=== PATIENT | female | born 1980 | race Hispanic/Latino ===

== ENCOUNTER 2017-06-13 13:56 | Emergency (ER) | payer OTHER ==
[~2017-06-13] VITALS: Ht 157.5 cm; Wt 59.0 kg
--- NOTE | 2017-06-13 14:27 | ED GI/GU/ABDOMINAL COMPLAINT ---
History of Present Illness General Chief Complaint: General Adult Stated Complaint: PT IS NOT ABLE TO HOLD ANYTHING DOWN Source: patient, old records, friend Exam Limitations: no limitations Vital Signs & Intake/Output Vital Signs & Intake/Output ED Intake and Output 06/14 0000 06/13 1200 Intake Total 100 Output Total Balance 100 Intake, IV 100 Patient 130 lb Weight Weight Reported by Patient Measurement Method Allergies Coded Allergies: naproxen (Intermediate, HIVES 06/13/17) tramadol (Intermediate, HIVES 06/13/17) Reconcile Medications Oxycodone HCl/Acetaminophen (Percocet 5-325 MG Tablet) 5 MG-325 MG TABLET 1 TAB PO BID PRN pain Potassium Chloride (Klor-Con 10) 10 MEQ TABLET.ER 1 TAB PO DAILY hypokalemia Promethazine HCl 12.5 MG TABLET 1 TAB PO Q6-8 PRN nausea Triage Note: PT TO TRIAGE WITH HER FRIEND, PT STATES THAT SHE STARTED WITH MID EPIGASTRIC PAIN THAT RADIATES INTO HER R SIDE YESTERDAY AT 11 AM, N/V, PT WAS SEEN AT [facility] AND HAD CT SCAN, THEY TOLD HER SHE HAS COLITIS AND DISCHARGED HER. PT HAS BEEN UNABLE TO KEEP ANYTHING DOWN AND PAIN IS INCREASING. PT VOMITTING BILE AT TRIAGE. Triage Nurses Notes Reviewed? yes ? n Is pt currently ? No Onset: Abrupt Duration: day(s): (2), constant Timing: recent history Quality/Severity: aching, cramping Severity Numbers: 6 Location: generalized abdomen Radiation: no radiation Activities at Onset: none Prior Abdominal Problems: none Modifying Factors: Worsens With: eating. Associated Symptoms: nausea/vomiting HPI: 36-year-old female with no medical history presents the ER for evaluation with family and friends complaining of diffuse abdominal pain nausea and vomiting since yesterday morning. She was seen at [facility] yesterday for the same at which time she she was told by CAT scan she has colitis and was sent home with antibiotics. She denies diarrhea however is been taking Zofran without improvement of her nausea and vomiting. She's been unable tolerate by mouth liquids. Her only abdominal surgery is significant for a tubal ligation. No coughing no fever no chills no chest pain shortness of breath or urinary symptoms no urinary urgency frequency no vaginal bleeding or discharge. no hemetemsis. no black or bloody stools. (Kalpesh Brown) Past History Travel History Traveled to [place] past 21 day No Medical History Any Pertinent Medical History? see below for history Neurological: NONE EENT: NONE Cardiovascular: NONE Respiratory: NONE Gastrointestinal: NONE Hepatic: NONE Renal: NONE Musculoskeletal: NONE Psychiatric: NONE Endocrine: NONE Blood Disorders: NONE Cancer(s): NONE CHILD WELFARE ASSISTANT/Reproductive: NONE Surgical History Surgical History: non-contributory Psychosocial History What is your primary language Samoan Tobacco Use: Never used ETOH Use: denies use Illicit Drug Use: denies illicit drug use Family History Hx Contributory? No (Kalpesh Brown) Review of Systems Review of Systems Constitutional: Reports: see HPI. Comments Review of systems: See HPI, All other systems negative. Constitutional, no chills no fever, no malaise HEENT: no sore throat no congestion, no ear pain Cardiovascular: No chest pain , no palpitation Skin: no rashes, no change in skin Respiratory: No dyspnea no cough no sputum GI: see hpi : No dysuria No hematuria, no frequency Muscle skeletal: No joint pain, no back pain, no neck pain Neurologic: , no headache Heme/endocrine: No bruising Immunology: No lymphadenopathy (Kalpesh Brown) Physical Exam Physical Exam General Appearance: well developed/nourished, alert, awake Gastrointestinal: soft, non-tender Comments: Well-developed well-nourished person in no acute distress HEENT: Normal EENT exam; PERRL, EOMI, HEAD is atraumatic. moist mucous membranes. Neck: Supple,normal range of motion Back: Nontender, no CVA tenderness. Full range of motion Cardiovascular: Regular rate and rhythms no murmur Respiratory: No respiratory distress. Patient speaking in full complete sentences. Breath sounds clear to auscultation bilaterally: NO W/R/R Abdomen: Soft, nontender nondistended, no appreciable organomegaly. Normal bowel sounds. No rebound/guarding, Extremity: No edema, full range of motion of extremities Neuro: Alert oriented x3, motor sensory normal, There were no obvious focal neurologic abnormalities. Skin: No appreciable rash on exposed skin, skin is warm and dry. No jaundice Psych: Mood and affect is normal, memory and judgment is normal. Core Measures ACS in differential dx? No Sepsis Present: No Sepsis Focused Exam Completed? No (Kalpesh Brown) Progress Differential Diagnosis: appendicitis, biliary colic, bowel obstruction, colon cancer, cholecystitis, diverticulitis, ectopic , hepatitis, hernia, inflamm bowel dis, intrauterine , kidney stone, ovarian cyst, pancreatitis, PID/cervicitis, PUD/GERD, perforated viscous, SBO, UTI/pyelo Plan of Care: Orders Procedure Date/time Status URINE 06/14 1439 Complete URINALYSIS 06/14 1439 Complete MAGNESIUM 06/14 1439 Complete LACTIC ACID 06/14 1439 Complete COMPREHENSIVE METABOLIC PANEL 06/14 1439 Complete CBC WITHOUT DIFFERENTIAL 06/14 1439 Complete Laboratory Tests 06/13/17 1740: Lactic Acid Cancelled 06/13/17 1539: Anion Gap 11, Estimated GFR > 60, BUN/Creatinine Ratio 24.0, Glucose 98, Lactic Acid 0.7, Calcium 9.0, Magnesium 1.8, Total Bilirubin 0.8, AST 17, ALT 26, Alkaline Phosphatase 54, Total Protein 6.7, Albumin 3.9, Globulin 2.8, Albumin/ Globulin Ratio 1.4, CBC w Diff NO MAN DIFF REQ, RBC 4.34, MCV 76.4 L, MCH 24.9 L, MCHC 32.5 L, RDW 15.4 H, MPV 8.6, Gran % 78.4 H, Lymphocytes % 13.5 L, Monocytes % 7.9, Eosinophils % 0, Basophils % 0.2, Absolute Granulocytes 6.6 H, Absolute Lymphocytes 1.1 L, Absolute Monocytes 0.7 H, Absolute Eosinophils 0, Absolute Basophils 0 06/13/17 1536: Urinalysis LIGHT H, Urine Color YEL, Urine Clarity HAZY H, Urine pH 6.0, Ur Specific [place] >= 1.030, Urine Protein 100 H, Urine Ketones >=80, Urine Nitrite NEG, Urine Bilirubin NEG@ICTO, Urine Urobilinogen 1.0, Ur Leukocyte Esterase NEG, Ur Microscopic SEDIMENT EXAMINED, Urine RBC 1-3, Urine WBC 1-3 H, Ur Epithelial Cells MANY H, Urine Bacteria MANY H, Urine Mucus MANY H, Urine Hemoglobin TRACE-LYSED, Urine Glucose NEG, Urine Test NEGATIVE Labs ordered old records 3 CAT scan ordered. Case discussed with Dr. Whitley agrees with plan 1600 patient resting in no apparent distress she's had no further episodes of vomiting after being medicated with Phenergan reports pain has improved pending CAT scan and discussed with length all of her labs today. 1700 and discussed with the patient and her family her CAT scan results. She reports her nausea is returning Phenergan IV ordered potassium IV ordered case discussed with Dr. Whitley. The patient's family has a history significant for liver cancer I discussed apparently her CAT scan findings today her primary care physician is out of [place] and I discussed with them need for close follow up and further monitoring including recommended MRI. Patient is otherwise nontoxic appearing at this time 1810- patient tolerating by mouth challenge with simin honorio with no episodes of nausea and dry heaving or vomiting. I discussed with her at once again a family plan of care she will go home with a prescription for potassium supplements Phenergan and Percocet. She was instructed to follow-up with her primary care physician regarding incidental findings on CAT scan today regarding a liver lesionS. . She will also be sent home with a water form for repeat potassium level which she was instructed to have done in 3 days. Return precautions were discussed at [place] she feels comfortable with plan Diagnostic Imaging: Viewed by Me: CT Scan. Discussed w/RAD: CT Scan. Initial ED EKG: none (Kalpesh Brown) Departure Departure Disposition: HOME OR SELF CARE Condition: Stable Clinical Impression Primary Impression: Nausea & vomiting Secondary Impressions: Hypokalemia, Liver lesion Referrals: Mily Chow APRN (PCP/Family) Additional Instructions: Phenergan for nausea. Percocet for pain. Potassium supplements as directed. Follow-up with your primary care physician this week as discussed regarding the incidental finding today on the CAT scan regarding your liver as you will most likely require further workup and imaging including possibly an MRI. Follow up as well for repeat potassium check. Return at anytime sooner with any concerns or worsening of your symptoms. Departure Forms: Customer Survey General Discharge Information Prescriptions: Current Visit Scripts Potassium Chloride (Klor-Con 10) 1 TAB PO DAILY #14 TAB Oxycodone HCl/Acetaminophen (Percocet 5-325 MG Tablet) 1 TAB PO BID PRN pain #10 TAB Promethazine HCl 1 TAB PO Q6-8 PRN nausea #14 TAB (Kalpesh Brown) PA/DINING SERVICE SUPERVISOR Co-Sign Statement Statement: ED Attending supervision documentation- [] I saw and evaluated the patient. I have also reviewed all the pertinent lab results and diagnostic results. I agree with the findings and the plan of care as documented in the PA's/DINING SERVICE SUPERVISOR's documentation. [X] I have reviewed the ED Record and agree with the PA's/DINING SERVICE SUPERVISOR's documentation. [] Additions or exceptions (if any) to the PAs/DINING SERVICE SUPERVISOR's note and plan are summarized below: [] (Gutierrez CRUZ,Zaynab)
[2017-06-13 15:58] VITALS: BP 149/79
[2017-06-13 15:59] LABS: ABSOLUTE BASOPHIL COUNT 0 /CUMM (0.0-0.2); ABSOLUTE EOSINOPHIL COUNT 0 /CUMM (0.0-0.7); ABSOLUTE GRANULOCYTE CT 6.6 /CUMM (1.4-6.5); ABSOLUTE LYMPH COUNT 1.1 /CUMM (1.2-3.4); ABSOLUTE MONOCYTE COUNT 0.7 /CUMM (0.10-0.60); BASOPHIL % 0.2 % (0.0-2.0); EOSINOPHIL % 0 % (0-5); GRANULOCYTE % 78.4 % (42.2-75.2); HEMATOCRIT 33.1 % (37-47); MEAN CORPUSCULAR HGB 24.9 PG (27.0-31.0); MEAN CORPUSCULAR HGB CONC 32.5 G/DL (33.0-37.0); MEAN CORPUSCULAR VOLUME 76.4 FL (81.0-99.0); MEAN PLATELET VOLUME 8.6 FL (7.4-10.4); PLATELET COUNT 219 /CUMM (130-400); RBC DISTRIBUTION WIDTH 15.4 % (11.5-14.5); RED BLOOD CELL CT 4.34 /CUMM (4.20-5.40); WHITE BLOOD CELL COUNT 8.5 /CUMM (4.8-10.8)
--- NOTE | 2017-06-13 16:44 | CT SCAN REPORT ---
EXAMINATION: CT ABDOMEN AND PELVIS WITH CONTRAST CLINICAL INFORMATION: Diffuse abdominal pain. Nausea and vomiting. COMPARISON: None TECHNIQUE: Multidetector volumetric imaging was performed of the abdomen and pelvis following IV administration of 95 mL of Optiray 320 intravenous contrast. Sagittal and coronal reformatted images were obtained on the technologist's workstation. DLP: 242.98 mGy-cm FINDINGS: LUNG BASES: The visualized lung bases are unremarkable. LIVER, GALLBLADDER, AND BILIARY TREE: There are 2 lesions in the right posterior lobe of liver. There is a strongly enhancing lesion with a hypodense central nidus that is somewhat ill-defined margins but defined rim. This measures 2.5 cm. Axial image 135 (3). The second lesion posterior medial right lobe of liver in subcapsular location measuring 3 x 2.5 x 2.6 cm is a hypodense lesion. This has sharply marginated borders. This has density measurement of 64 Hounsfield units and is not a hepatic cyst. Both of these liver lesions can be further characterized with dynamic MRI study. No intrahepatic bile duct dilatation. The gallbladder is unremarkable with no evidence of radiopaque gallstones, gallbladder wall thickening, or obvious pericholecystic inflammatory changes. PANCREAS: Unremarkable. SPLEEN: Unremarkable. ADRENAL GLANDS: Unremarkable. KIDNEYS AND URETERS: The kidneys are normal in size, shape, and attenuation. No hydronephrosis, hydroureter, or calculi seen. No perinephric stranding. BLADDER: Unremarkable. GASTROINTESTINAL TRACT: The small and large bowel are unremarkable. The appendix is not identified. There is no inflammation the mesentery. ABDOMINAL WALL: No significant hernia is appreciated. LYMPH NODES: Normal. VASCULAR: Unremarkable. PELVIC VISCERA: The uterus is retroverted. There is no adnexal abnormality. OSSEOUS STRUCTURES: No acute abnormality. There are small calcifications in the nucleus pulposus of the L3-L4 vertebrae. There is small subcortical cysts in the central inferior endplate of L2 and L3 vertebrae. IMPRESSION: 1. No acute abnormality CT scan abdomen pelvis. 2. 2 nonspecific lesions in the right lobe of liver. These can be further characterized with nonemergent dynamic MRI imaging.
[2017-06-13] MEDS ORDERED: PROMETHAZINE12.5 M2 PO (17:30)
[2017-06-13] MEDS ORDERED: PERCOCET 5-3251 EACH PO (17:30)
[2017-06-13] MEDS ORDERED: KLOR-CON 1010 ME1 PO (17:30)
== END 2017-06-13 19:27 ==
LOC: ERH 13:56
PROVIDERS: Physician Assistant Medical
DX: R11.2 Nausea with vomiting, unspecified (principal); E87.6 Hypokalemia; K76.9 Liver disease, unspecified
CPT/HCPCS: 74177; 81001; 81025; 96365; 96375; 96376; J2550; J7040

== ENCOUNTER 2017-07-10 15:33 | Emergency (ER) | payer OTHER ==
[~2017-07-10] VITALS: Ht 157.5 cm; Wt 59.0 kg
[~2017-07-10 15:33] MED LIST: KLOR-CON 1010 ME1 PO; PERCOCET 5-3251 EACH PO; PROMETHAZINE12.5 M2 PO
[2017-07-10 18:32] LABS: ABSOLUTE BASOPHIL COUNT 0 /CUMM (0.0-0.2); ABSOLUTE EOSINOPHIL COUNT 0 /CUMM (0.0-0.7); ABSOLUTE GRANULOCYTE CT 7.8 /CUMM (1.4-6.5); ABSOLUTE MONOCYTE COUNT 0.2 /CUMM (0.10-0.60); BASOPHIL % 0.3 % (0.0-2.0); EOSINOPHIL % 0 % (0-5); HEMATOCRIT 36.9 % (37-47); MEAN CORPUSCULAR HGB 24.8 PG (27.0-31.0); MEAN CORPUSCULAR VOLUME 77.4 FL (81.0-99.0); MEAN PLATELET VOLUME 8.7 FL (7.4-10.4); PLATELET COUNT 270 /CUMM (130-400); RBC DISTRIBUTION WIDTH 15.8 % (11.5-14.5); RED BLOOD CELL CT 4.77 /CUMM (4.20-5.40); WHITE BLOOD CELL COUNT 9.1 /CUMM (4.8-10.8)
[2017-07-10 18:50] LABS: GRANULOCYTE % 85.7 % (42.2-75.2)
--- NOTE | 2017-07-10 20:48 | ED GI/GU/ABDOMINAL COMPLAINT ---
History of Present Illness General Chief Complaint: Abdominal Pain/Flank Pain Stated Complaint: SHIVER, NVD, FEVER,ABDOMINAL PAIN Source: patient Exam Limitations: no limitations Vital Signs & Intake/Output Vital Signs & Intake/Output Vital Signs Date Time Temp Pulse Resp B/P B/P Pulse O2 O2 Flow FiO2 Mean Ox Delivery Rate 07/10 2054 99.5 100 18 137/80 98 Room Air 07/10 1540 98.0 112 16 132/92 98 Room Air Allergies Coded Allergies: naproxen (Intermediate, HIVES 06/13/17) tramadol (Intermediate, HIVES 06/13/17) Reconcile Medications LORazepam (Ativan) 1 MG TAB 1 TAB PO TID PRN NAUSEA Metoclopramide HCl (Reglan) 10 MG TABLET 1 TAB PO 4 TIMES/DAY PRN NAUSEA 30 minutes before meals and bedtime Ondansetron (Zofran Odt) 4 MG TAB.RAPDIS 1 TAB SL TID PRN NAUSEA Oxycodone HCl/Acetaminophen (Percocet 5-325 MG Tablet) 5 MG-325 MG TABLET 1 TAB PO BID PRN pain Potassium Chloride (Klor-Con 10) 10 MEQ TABLET.ER 1 TAB PO DAILY hypokalemia Promethazine HCl 12.5 MG TABLET 1 TAB PO Q6-8 PRN nausea Triage Note: PT TO TRIAGE VOMITING YELLOW BILE THAT SHE STATES HAS BEEN GOING ON SINCE THIS AM. PT STATES SHE WAS HERE THE BEGINING OF JUNE WITH THE SAME THING. PT STATES THERE WAS NOTHING WRONG WITH HER THEN JUST "A BUG". Triage Nurses Notes Reviewed? yes LMP (ages 10-50): unknown ? N Is pt currently ? No Onset: Abrupt Duration: day(s): (2), changing over time, continues in ED, getting worse Timing: single episode today Quality/Severity: cramping Severity Numbers: 7 Location: generalized abdomen Radiation: no radiation Prior Abdominal Problems: similar symptoms Past Sexual History: Unobtainable at this time No Modifying Factors: none Modifying Factors: Worsens With: vomiting. Associated Symptoms: nausea/vomiting HPI: 36-year-old female with no known past medical history positive for evaluation of nausea vomiting and abdominal pain. Patient states symptoms started about 2 days ago and have been intermittently worse. She reports multiple episodes of vomiting yellow material today. She's been unable to eat or drink much. She's not taking any medicine for this. She had a similar episode about one month ago and is evaluated here. She never followed up. She denies any chest pain shortness of breath diarrhea hematemesis or fever. No recent travel no sick contacts. She denies any alcohol use. (Alexander Hernandez) Past History Travel History Traveled to [place] past 21 day No Medical History Any Pertinent Medical History? see below for history Neurological: NONE EENT: NONE Cardiovascular: NONE Respiratory: NONE Gastrointestinal: NONE Hepatic: NONE Renal: NONE Musculoskeletal: NONE Psychiatric: NONE Endocrine: NONE Blood Disorders: NONE Cancer(s): NONE PHOTOGRAPHIC ARTIST/Reproductive: NONE Surgical History Surgical History: non-contributory Psychosocial History What is your primary language Dutch Tobacco Use: Never used ETOH Use: denies use Illicit Drug Use: denies illicit drug use Family History Hx Contributory? No (Alexander Hernandez) Review of Systems Review of Systems Constitutional: Reports: no symptoms. EENTM: Reports: no symptoms. Respiratory: Reports: no symptoms. Cardiovascular: Reports: no symptoms. GI: Reports: see HPI, abdominal pain, nausea, vomiting. Genitourinary: Reports: no symptoms. Musculoskeletal: Reports: no symptoms. Skin: Reports: no symptoms. Neurological/Psychological: Reports: no symptoms. Hematologic/Endocrine: Reports: no symptoms. Immunologic/Allergic: Reports: no symptoms. All Other Systems: Reviewed and Negative (Alexander Hernandez) Physical Exam Physical Exam General Appearance: well developed/nourished, no apparent distress, alert, awake Head: atraumatic, normal appearance Eyes: Bilateral: normal appearance, PERRL, EOMI. Ears, Nose, Throat, Mouth: hearing grossly normal, moist mucous membrane Neck: normal inspection, supple, full range of motion Respiratory: normal breath sounds, chest non-tender, no respiratory distress, lungs clear Cardiovascular: regular rate/rhythm, normal peripheral pulses Peripheral Pulses: 2+ radial (R), 2+ radial (L) Gastrointestinal: soft, no organomegaly, tenderness (DIFFUSE) Back: normal inspection, normal range of motion, no vertebral tenderness Extremities: normal range of motion Neurologic/Psych: no motor/sensory deficits, awake, alert, oriented x 3, normal gait Skin: intact, normal color, warm/dry Core Measures ACS in differential dx? No Sepsis Present: No Sepsis Focused Exam Completed? No (Alexander Hernandez) Progress Differential Diagnosis: appendicitis, biliary colic, bowel obstruction, cholecystitis, diverticulitis, gastritis, kidney stone, pancreatitis, peptic ulcer, PUD/GERD, UTI/pyelo Plan of Care: Orders Procedure Date/time Status URINALYSIS 07/10 1808 Complete LIPASE 07/10 1808 Complete HUMAN BETA HCG SCREEN 07/10 1808 Complete COMPREHENSIVE METABOLIC PANEL 07/10 1808 Complete CBC WITHOUT DIFFERENTIAL 07/10 1808 Complete Laboratory Tests 07/10/17 1940: Urine Color YEL, Urine Clarity CLEAR, Urine pH 7.5, Ur Specific [place] 1.020, Urine Protein 30 H, Urine Ketones 40 H, Urine Nitrite NEG, Urine Bilirubin NEG , Urine Urobilinogen 1.0, Ur Leukocyte Esterase NEG, Ur Microscopic SEDIMENT EXAMINED, Urine RBC 1-3, Urine WBC 1-3 H, Ur Epithelial Cells FEW, Urine Bacteria FEW H, Urine Mucus MANY H, Urine Hemoglobin NEG, Urine Glucose NEG 07/10/171818: Anion Gap 13, Estimated GFR > 60, BUN/Creatinine Ratio 20.0, Glucose 126 H, Calcium 10.0, Total Bilirubin 1.2, AST 31, ALT 36, Alkaline Phosphatase 74, Total Protein 7.8, Albumin 4.4, Globulin 3.4, Albumin/Globulin Ratio 1.3, Lipase 67, Total Beta HCG NEGATIVE, CBC w Diff NO MAN DIFF REQ, RBC 4.77, MCV 77.4 L, MCH 24.8 L, MCHC 32.0 L, RDW 15.8 H, MPV 8.7, Gran % 85.7 H, Lymphocytes % 11.3 L, Monocytes % 2.7, Eosinophils % 0, Basophils % 0.3, Absolute Granulocytes 7.8 H, Absolute Lymphocytes 1.0 L, Absolute Monocytes 0.2, Absolute Eosinophils 0, Absolute Basophils 0 Patient seen and evaluated. She is reporting multiple episodes of vomiting today. She is actively vomiting here in the ER. We'll check basic labs and a CT scan. Patient was given fluids and IV Zofran. She continued to vomit despite Zofran. She was given a dose of Phenergan. Patient also required doses of Reglan. CT scan does not show any acute findings. Liver lesions are redemonstrated patient was told about these on her last ER visit and never followed up. Bloodwork is within normal limits potassium is 3.4. Patient is still vomiting she was given a dose of IV Ativan. Patient eventually began to feel better after receiving multiple medications and Ativan. She was given crackers and water by mouth and was able to tolerated. She reports feeling better and is requesting to go home. Patient will be discharged home with a prescription for Ativan Zofran and Reglan. Patient has oral potassium at home and advised her to continue taking this. Advised to follow-up with a GI doctor as soon as possible for further evaluation of the liver lesions. Brat diet. Discussed return precautions in detail. Patient agrees the plan. Diagnostic Imaging: Viewed by Me: CT Scan. Discussed w/RAD: CT Scan. Radiology Impression: PATIENT: LINDY GUERRIER PRESENT AGE: 36 PATIENT ACCOUNT NO: [id number] : 79 LOCATION: [facility] ORDERING PHYSICIAN: Alexander [place] SERVICE DATE: 07/10/17 EXAM TYPE: CAT - CT ABD & PELVIS W IV CONTRAST EXAMINATION: CT ABDOMEN AND PELVIS WITH CONTRAST CLINICAL INFORMATION: Diffuse abdominal pain. Nausea, vomiting. COMPARISON: 10/2017. TECHNIQUE: Contiguous axial thin section helical images of the abdomen and pelvis were performed following the administration of 95 mL of intravenous Optiray 320. The data set was reformatted in the coronal and sagittal planes and reviewed on an independent workstation. DLP: 240 mGy-cm. FINDINGS: The visualized lung bases are clear. The visualized portions of the heart are unremarkable. The liver is of normal size and attenuation without intrahepatic biliary ductal dilation. Within the inferior right lobe of the liver, there is an area of increased attenuation measuring approximately 2.8 cm. This is nonspecific, but could represent enhancement. A normal gallbladder is identified. There is no wall thickening or discernible pericholecystic fluid. The spleen, pancreas and left adrenal glands are unremarkable. There is a low- attenuation lesion within the right adrenal gland measuring 2.8 cm. Both kidneys are of normal size and attenuation without hydronephrosis or nephrolithiasis. Following the administration of IV contrast, prompt symmetric nephrograms are displayed. There is no abdominal free fluid. There is neither mesenteric nor retroperitoneal lymphadenopathy. Normal unopacified loops of small and large bowel are identified. There is no pelvic free fluid. The urinary bladder is unremarkable. There is neither pelvic nor inguinal lymphadenopathy. Bone windows : Neither sclerotic nor lytic bone lesions are identified. IMPRESSION: No evidence for acute abdominal or pelvic inflammatory or infectious processes. 2.8 cm enhancing lesion within the right lobe of the liver. This is nonspecific, but could correspond to an hemangioma and unchanged from prior exam. Consider correlation with abdominal MRI for further tissue characterization. 2.8 cm right adrenal mass. Noncontrast Hounsfield unit measurements cannot be obtained on this postcontrast study. This is likely business process representative of an adrenal adenoma, though consider correlation with abdominal MRI for further tissue characterization. DICTATED BY: Sorin Saenz MD DATE/TIME DICTATED:07/10/172038 HOME HEALTH CARE COORDINATOR:JORDANA DATE/TIME TRANSCRIBED:07/10/172038 CONFIDENTIAL, DO NOT COPY WITHOUT APPROPRIATE AUTHORIZATION. Initial ED EKG: none (Alexander Hernandez) Departure Departure Disposition: HOME OR SELF CARE Condition: Stable Clinical Impression Primary Impression: Nausea & vomiting Qualifiers: Vomiting type: unspecified Vomiting Intractability: non-intractable Qualified Code: R11.2 - Nausea with vomiting, unspecified Referrals: Mily Chow APRN (PCP/Family) Jennifer CRUZ,Earl Humphreys Additional Instructions: Rest and drink plenty of fluids. Eat bland foods like bananas rice applesauce and toast. Make a follow-up with her primary care doctor and provided GI doctor as soon as possible. Zofran and Reglan and ativan can be used as needed nausea and abdominal pain. Monitor symptoms closely return with any concerns. Departure Forms: Customer Survey General Discharge Information Prescriptions: Current Visit Scripts Metoclopramide HCl (Reglan) 1 TAB PO 4 TIMES/DAY PRN NAUSEA #30 TAB 30 minutes before meals and bedtime Ondansetron (Zofran Odt) 1 TAB SL TID PRN NAUSEA #15 TAB LORazepam (Ativan) 1 TAB PO TID PRN NAUSEA #10 TAB (Alexander Hernandez) PA/RETAIL STORE CLERK Co-Sign Statement Statement: ED Attending supervision documentation- [] I saw and evaluated the patient. I have also reviewed all the pertinent lab results and diagnostic results. I agree with the findings and the plan of care as documented in the PA's/RETAIL STORE CLERK's documentation. [x] I have reviewed the ED Record and agree with the PA's/RETAIL STORE CLERK's documentation. [] Additions or exceptions (if any) to the PAs/RETAIL STORE CLERK's note and plan are summarized below: [] (Sylvia MD,Ross Morgan)
[2017-07-10] MEDS ORDERED: ZOFRAN ODT4 M1 SL (22:09)
[2017-07-10] MEDS ORDERED: REGLAN10 M1 PO (22:09)
[2017-07-10] MEDS ORDERED: ATIVAN1 M1 PO (22:09)
[2017-07-10 22:15] VITALS: BP 128/78
== END 2017-07-10 22:19 ==
LOC: ERH 15:33
PROVIDERS: Physician Assistant Medical
DX: R11.2 Nausea with vomiting, unspecified (principal)
CPT/HCPCS: 74177; 81001; 96374; 96375; J0131; J2550; J2765